=== PATIENT | female | born 1970 | race Caucasian/White ===

== ENCOUNTER 2016-10-24 14:12 | Emergency (ER) | payer BC ==
[2016-10-24] MEDS ORDERED: Sodium Chloride 0.9% 10 ML Syringe FLUSH PRN (14:48)
--- NOTE | 2016-10-24 14:52 | EDM.PDOC ---
ED HPI GENERAL MEDICAL PROBLEM - General Chief Complaint: Chest Pain Stated Complaint: CHEST PAIN Time Seen by Provider: 10/24/16 14:28 Source of Information: Reports: Patient History Limitations: Reports: No Limitations - History of Present Illness INITIAL COMMENTS - FREE TEXT/NARRATIVE: 46-year-old female presents for evaluation treatment of chest pain and shakiness. Patient reports that she experienced these symptoms on Sunday morning , Sunday morning and earlier today. She states that they last about 5-10 minutes and resolve on her own. She denies any chest pain now. She reports associated symptoms of nausea and shakiness with the chest pain. She also reports that she was feeling fait, lightheadedness and some palpitations. She states that she has had similar episodes in the past. She was found to have hypothyroidism and has been placed on levothyroxine. She was previously on 50 mcg and was increased up to 75 mcg recently. Patient denies any shortness of breath, vomiting, syncope, abdominal pain, cough, heat or cold intolerance. She states that she does have some hot flashes. Patient called her primary care provider to be seen via them today but was instructed to come to the ER as her primary care did not have any openings. Treatments ENVIRONMENTAL SERVICES FLOOR TECH: Reports: Aspirin Chest Pain Score (Numeric/FACES): 1 - Related Data Allergies Allergy/AdvReac Type Severity Reaction Status Date / Time No Known Allergies Allergy Verified 10/24/16 14:24 Home Meds: Home Meds Levothyroxine Sodium [Synthroid] 75 mcg PO DAILY 10/24/16 [History] Past Medical History Endocrine/Metabolic History: Reports: Hypothyroidism Social & Family History - Tobacco Use Smoking Status *Q: Current Every Day Smoker Years of Tobacco use: 15 Packs/Tins Daily: 0.5 - Caffeine Use Caffeine Use: Reports: Coffee - Recreational Drug Use Recreational Drug Use: No ED ROS GENERAL - Review of Systems Review Of Systems: See Below Constitutional: Denies: Fever Respiratory: Denies: Shortness of Breath Cardiovascular: Reports: Chest Pain, Lightheadedness, Palpitations GI/Abdominal: Reports: Nausea. Denies: Abdominal Pain, Vomiting Neurological: Denies: Syncope ED EXAM, GENERAL - Physical Exam Exam: See Below Exam Limited By: No Limitations General Appearance: Alert, WD/WN, No Apparent Distress Throat/Mouth: Normal Inspection, Normal Lips, Normal Voice, No Airway Compromise Respiratory/Chest: No Respiratory Distress, Lungs Clear, Normal Breath Sounds Cardiovascular: Normal Peripheral Pulses, Regular Rate, Rhythm, No Murmur GI/Abdominal: Soft, Non-Tender Neurological: Alert, Oriented, Normal Cognition Psychiatric: Normal Affect, Normal Mood Skin Exam: Warm, Dry, Normal Color EKG INTERPRETATION EKG Date: 10/24/16 Time: 14:15 Rhythm: NSR Rate (Beats/Min): 100 [place]: Normal P-Wave: Present QRS: Normal ST-T: Normal QT: Normal EKG Interpretation Comments: NSR at [address] abnormalities. No STEMI. Reviewed by myself and Dr. Leticia Wheatley. Course - Vital Signs Last Recorded V/S: Last Vital Signs Temp 36.6 C 10/24/16 14:18 Pulse 84 10/24/16 16:08 Resp 16 10/24/16 14:18 BP 136/82 10/24/16 16:08 Pulse Ox 98 10/24/16 16:08 - Orders/Labs/Meds Orders: Active Orders 24 hr Category Date Time Status Cardiac Monitoring [RC] . DIRECTED Care 10/24/16 14:47 Active EKG 12 Lead [EKG Documentation Completion] [RC] STAT Care 10/24/16 14:34 Active Peripheral IV Care [RC] . DIRECTED Care 10/24/16 14:48 Active Chest 2V [CR] Stat Exams 10/24/16 14:47 Taken Peripheral IV Insertion Adult [OM.PC] Routine Oth 10/24/16 14:48 Ordered Labs: Laboratory Tests 10/24/16 10/24/16 Range/Units 14:32 14:32 WBC 8.07 (3.98-10.04) K/mm3 RBC 4.13 (3.98-5.22) M/mm3 Hgb 14.2 (11.2-15.7) gm/L Hct 42.4 (34.1-44.9) % MCV 102.7 H (79.4-94.8) fl MCH 34.4 H (25.6-32.2) pg MCHC 33.5 (32.2-35.5) g/dl RDW Std Deviation 48.9 H (36.4-46.3) fL Plt Count 273 (182-369) K/mm3 MPV 9.8 (9.4-12.3) fl Neut % (Auto) 67.3 (34.0-71.1) % Lymph % (Auto) 21.7 (19.3-51.7) % [place] % (Auto) 7.8 (4.7-12.5) % Eos % (Auto) 2.6 (0.7-5.8) Baso % (Auto) 0.4 (0.1-1.2) % Neut # (Auto) 5.43 (1.56-6.13) K/mm3 Lymph # (Auto) 1.75 (1.18-3.74) K/mm3 [place] # (Auto) 0.63 H (0.24-0.36) K/mm3 Eos # (Auto) 0.21 (0.04-0.36) K/mm3 Baso # (Auto) 0.03 (0.01-0.08) K/mm3 Sodium 136 (136-145) mEq/L Potassium 3.8 (3.5-5.1) mEq/L Chloride 101 (98-107) mEq/L Carbon Dioxide 25 (21-32) mEq/L Anion Gap 13.8 (5-15) BUN 7 (7-18) mg/dL Creatinine 0.8 (0.55-1.02) mg/dL Est Cr Clr Drug Dosing 89.58 mL/min Estimated GFR (MDRD) > 60 (>60) mL/min BUN/Creatinine Ratio 8.8 L (14-18) Glucose 109 H (74-106) mg/dL Calcium 9.1 (8.5-10.1) mg/dL Total Bilirubin 1.0 (0.2-1.0) mg/dL AST 36 (15-37) U/L ALT 43 (14-59) U/L Alkaline Phosphatase 62 (46-116) U/L CK-MB (CK-2) < 0.5 (0-3.6) ng/ml Troponin I < 0.017 (0.00-0.056) ng/mL Total Protein 7.9 (6.4-8.2) g/dl Albumin 4.4 (3.4-5.0) g/dl Globulin 3.5 gm/dL Albumin/Globulin Ratio 1.3 (1-2) Free T4 1.03 (0.76-1.46) ng/dL TSH 3rd Generation 2.925 (0.358-3.74) uIU/mL Meds: Medications Discontinued Medications Generic Name Dose Route Start Last Admin Trade Name Jeanette PRN Reason Stop Dose Admin Sodium Chloride 10 ml 10/24/16 14:48 10/24/16 15:54 Saline Flush FLUSH 10 ml ASDIRECTED PRN Administration Keep Vein Open - Radiology Interpretation Free Text/Narrative:: chest xray shows no acute intrathoracic process. - Re-Assessments/Exams Free Text/Narrative Re-Assessment/Exam: 10/24/16 16:02 Labs returned. White blood cell count 8.07, hemoglobin 14.2 and platelets are 243. Sodium 136, potassium 3.8 chloride 101. Anion gap 13.8. Glucose 109. Creatinine 1.0. Glucose 109. CK-MB within normal limits at less than 0.5. troponin within normal limits at less than 0.017. Free T4 is 1.03. TSH is 2.925. I reviewed the labs, EKG and chest x-ray results with the patient. Likely recent thyroid medication change causing the chest discomfort and palpitations. We will discharge her home at this time. Discharge instructions as documented. Departure - Departure Time of Disposition: 16:03 Disposition: Home, Self-Care 01 Condition: Good Clinical Impression: Atypical chest pain Instructions: Nonspecific Chest Pain Referrals: Coco Welch DO [Primary Care Provider] - Forms: ED Department Discharge Additional Instructions: Follow-up with your primary care provider in about 2 weeks. Continue with your current plan of care. Please return to the ER immediately if your symptoms change or worsen. - My Orders Last 24 Hours: My Active Orders 10/24/16 14:34 EKG 12 Lead [EKG Documentation Completion] [RC] STAT 10/24/16 14:47 Cardiac Monitoring [RC] . DIRECTED Chest 2V [CR] Stat 10/24/16 14:48 Peripheral IV Care [RC] . DIRECTED Peripheral IV Insertion Adult [OM.PC] Routine - Assessment/Plan Last 24 Hours: My Active Orders 10/24/16 14:34 EKG 12 Lead [EKG Documentation Completion] [RC] STAT 10/24/16 14:47 Cardiac Monitoring [RC] . DIRECTED Chest 2V [CR] Stat 10/24/16 14:48 Peripheral IV Care [RC] . DIRECTED Peripheral IV Insertion Adult [OM.PC] Routine
[2016-10-24 16:13] VITALS: BP 136/82
--- NOTE | 2016-10-25 12:13 | CR ---
Chest: Two views of the chest were obtained. Comparison: No previous study. Heart size and mediastinum are normal. Lungs are clear. Bony structures show mild scattered disc space narrowing within the spine. Several mild compression deformities are seen within the mid thoracic spine which are likely old. Impression: 1. Incidental findings. Nothing acute is seen on two-view chest x-ray. Diagnostic code #2
== END 2016-10-24 16:08 | disposition home or self-care (01) ==
LOC: JD.ED 14:12
DX: R07.89 Other chest pain (principal); E03.9 Hypothyroidism, unspecified; F17.210 Nicotine dependence, cigarettes, uncomplicated
CPT/HCPCS: 36415; 71020; 80053; 82553; 84439; 84443; 84484; 85025; 93005; 99285; J7050; 99284